=== PATIENT | female | born 1950 | race Caucasian/White ===

== ENCOUNTER → 2017-02-05 | Outpatient (CLI) | payer OTHER, MEDICARE | LOC: RAD 08:40 | DX: M54.5 Low back pain (principal); M25.551 Pain in right hip; M79.604 Pain in right leg; M47.817 Spondylosis without myelopathy or radiculopathy, lumbosacral region | CPT/HCPCS: 72110 ==

== ENCOUNTER → 2021-01-26 | Outpatient (CLI) | payer MEDICARE ==
[2021-01-26 09:24] LABS: RED BLOOD COUNT 4.46 M/UL (4.00-5.10); WHITE BLOOD COUNT 12.3 K/UL (4.5-11.0)
[2021-01-26 09:46] LABS: BUN/CREATININE RATIO 9 (0-10)
== END ==
LOC: LAB 08:46
PROVIDERS: Nurse Practitioner
DX: Z00.01 Encounter for general adult medical examination with abnormal findings (principal); R53.83 Other fatigue; I10 Essential (primary) hypertension; E55.9 Vitamin D deficiency, unspecified; R12 Heartburn; M79.10 Myalgia, unspecified site; Z79.899 Other long term (current) drug therapy
CPT/HCPCS: 36415; 80053; 82607; 82746; 83036; 83735; 84443; 85025

== ENCOUNTER → 2021-09-12 | Outpatient (CLI) | payer MEDICARE | LOC: CT 09:25 | DX: I70.211 Atherosclerosis of native arteries of extremities with intermittent claudication, right leg (principal); I70.212 Atherosclerosis of native arteries of extremities with intermittent claudication, left leg; I87.8 Other specified disorders of veins | CPT/HCPCS: 36415; 75635; 82565; 84520; Q9967 ==

== ENCOUNTER → 2021-12-24 | Outpatient (CLI) | payer MEDICARE ==
[~2021-12-24] MED LIST: ATORVASTATIN CA20 MG PO; CALCIUM + D3 E1 EACH PO; CILOSTAZOL100 MG PO; FISH OIL 1,0001 EAC7 PO; FOSAMAX70 MG PO; HYDROCODON-ACE1 EAC2 PO; LOSARTAN POTASS25 MG PO; MOBIC15 MG PO; NITROSTAT 0.4100 TAB SL; OMEPRAZOLE20 MG PO; PROAIR HFA8.5 GM INH; TOPROL XL25 MG PO
[2021-12-24 06:43] LABS: RED BLOOD COUNT 4.32 M/UL (4.00-5.10); WHITE BLOOD COUNT 10.7 K/UL (4.5-11.0)
[2021-12-24 07:11] LABS: BUN/CREATININE RATIO 9 (0-10)
== END ==
LOC: CATH 06:08
PROVIDERS: Internal Medicine Cardiovascular Disease
DX: I70.221 Atherosclerosis of native arteries of extremities with rest pain, right leg (principal); I70.92 Chronic total occlusion of artery of the extremities; I70.213 Atherosclerosis of native arteries of extremities with intermittent claudication, bilateral legs; I73.9 Peripheral vascular disease, unspecified; I25.10 Atherosclerotic heart disease of native coronary artery without angina pectoris; F17.210 Nicotine dependence, cigarettes, uncomplicated; Z01.818 Encounter for other preprocedural examination; E78.00 Pure hypercholesterolemia, unspecified; Z88.8 Allergy status to other drugs, medicaments and biological substances; Z79.02 Long term (current) use of antithrombotics/antiplatelets; Z79.1 Long term (current) use of non-steroidal anti-inflammatories (NSAID); Z79.810 Long term (current) use of selective estrogen receptor modulators (SERMs); Z79.83 Long term (current) use of bisphosphonates; Z79.51 Long term (current) use of inhaled steroids
CPT/HCPCS: 36415; 75710; 80048; 85025; 85610; C1894; J0360; J1644; J2250; J3010; J7030; Q9965